=== PATIENT | male | born 1995 | race Caucasian/White ===

== ENCOUNTER → 2020-10-30 | Outpatient (CLI) | payer OTHER ==
--- NOTE | 2020-11-02 11:00 | ECHO ---
DATE OF PROCEDURE: 10/30/2020 Age: 25 Gender: Male PATIENT LOCATION: Outpatient. REFERRING PHYSICIAN: GIOVANNY MOREIRA PA-C REASON FOR STUDY: Connective tissue disorder. 2D MEASUREMENTS: IVS 1.0 cm LV 4.7 cm LVPW 1.0 cm LA 3.8 cm Aorta 3.0 cm IVC 2.6 cm DOPPLER MEASUREMENT Peak velocity across the aortic valve 1.1 msec Peak velocity across the LVOT 0.8 msec Mitral E 0.73 Mitral A 0.49 with a ratio of 1.5 2D COMMENTS: 1. Normal left ventricular size, wall thickness, and normal global left ventricular systolic function. The estimated left ventricular systolic ejection fraction is 60% to 65%. 2. Normal left atrium. Normal right atrium and right ventricle. 3. The atrial septum appeared to be normal without evidence of defect or shunt. 4. Normal aortic root. 5. No pericardial effusion seen. 6. The aortic valve, mitral valve, tricuspid valve, and pulmonic valve appeared to be normal. The proximal pulmonary artery branches were not well visualized. 7. The inferior vena cava was mildly enlarged, central venous pressure might be elevated. Doppler detects trace mitral regurgitation, trace tricuspid regurgitation, and trace pulmonic regurgitation. Assessment of the left ventricular diastolic function appeared to be normal. IMPRESSION: 1. Normal global left ventricular systolic and diastolic function. 2. Trace mitral regurgitation. 3. Trace tricuspid regurgitation. Pulmonary artery systolic pressure appeared to be normal. 4. Trace pulmonic regurgitation. 5. The inferior vena cava was mildly enlarged. MTDD
== END ==
LOC: M CARPUL 08:20
PROVIDERS: ATTEND Physician Assistant
DX: S46.101A Unspecified injury of muscle, fascia and tendon of long head of biceps, right arm, initial encounter (principal); X50.3XXA Overexertion from repetitive movements, initial encounter; Y92.9 Unspecified place or not applicable; Y93.89 Activity, other specified

== ENCOUNTER 2022-02-02 17:59 | Emergency (ER) | payer OTHER ==
[~2022-02-02] VITALS: Ht 188 cm; Wt 91.6 kg
[2022-02-02 21:01] LABS: GC DNA AMPLIFICATION NEGATIVE (NEGATIVE)
[2022-02-02 21:38] VITALS: BP 131/65
== END 2022-02-02 21:40 | disposition home or self-care (01) ==
LOC: M ED 17:59
DX: Z20.2 Contact with and (suspected) exposure to infections with a predominantly sexual mode of transmission (principal)

== ENCOUNTER → 2022-03-30 | Outpatient (CLI) | payer OTHER | LOC: M PLAIMG 06:46 | PROVIDERS: ATTEND Orthopaedic Surgery | DX: S16.1XXD Strain of muscle, fascia and tendon at neck level, subsequent encounter (principal); W18.30XD Fall on same level, unspecified, subsequent encounter ==